=== PATIENT | female | born 1950 | race Caucasian/White ===

== ENCOUNTER → 2017-04-29 | Outpatient (CLI) | payer BC ==
[~2017-04-29] MED LIST: ACET-1256 PO; BND25X PO; CLTP PO; CORTISONE CREAM TD; DIAZ10TA PO; FERR324T PO; FRRG PO; GABA-113 PO; GLC500 PO; IMD/2 PO; LIDO/EPINEPHRINE/SOD BICARB 20 ML VIAL INFIL ONE; MCR5 PO; OXYC-292 PO; OXYC1TAB3 PO; PARO1TAB29 PO; SITA100T3 PO; XRL10 PO; XYLOCAINE 1%/SOD BICARB 20 ML VIAL INFIL ONE
[2017-04-29 12:33] LABS: ISTAT CREATININE 0.9 mg/dl (0.6-1.3); ISTAT HEMOGLOBIN 15.6 g/dl (12.0-16.0); ISTAT IONIZED CALCIUM 1.42 mmol/l (1.12-1.32)
--- NOTE | 2017-04-29 13:09 | Discharge Instructions ---
Discharge Instructions Procedure Procedure Date: Apr 29, 2017. Reason for visit: Hx Of Left Breast Ca-Images Here. Discharge Discharge Date: Apr 29, 2017. Discharge Diagnosis: post left breast MRI guided biopsy Instructions Activity Recommendations: Additional Limitations (see below) Return to School/Work: no limitations Recommended Home Diet: No Limitations Provider Instructions: ACTIVITY RECOMMENDATIONS: * No lifting, pushing, pulling or exercising the affected side for three days. RETURN TO SCHOOL/WORK: * You may return to work/school after the procedure, but do not perform any strenuous activities for 24 to 48 hours. MEDICATIONS: * Tylenol (two 325 mg) every four to six hours if needed for mild pain (if not allergic to Tylenol). DIET: * Resume previous diet. SPECIAL CARE INSTRUCTIONS: * Keep biopsy site dry for 24 hours. May shower after 24 hours, but do not soak (bathe) incision. * May remove Tegaderm (plastic patch) tomorrow AFTER showering. * Leave the steri-strips on for one week. Allow the steri-strips to fall off by themselves. If not off after one week, you may remove them. You may place a Bandaid crosswise over the strips, if desired. * Apply ice 10 minutes on and 10 minutes off as needed. * Wear a bra at bedtime to sleep more comfortably for 2-3 days. * Your referring physician should have the results after approximately 5 to 7 business days. * Call for unusual bleeding, fever, drainage, etc or if you have any questions call [phone] during normal business hours or after hours call Dr Long, . FOLLOW UP VISIT: Follow-up with Referring Physician as scheduled. Allergies Coded Allergies: Sulfa Drugs (Verified Allergy, Intermediate, RASH, 12/27/09) Adhesives (Verified Adverse Reaction, Intermediate, ITCHINESS,SKIN SORES, 12/27/09) Morphine (Verified Adverse Reaction, crying, hallucinations, 07/13/11) Raffaele Martinez Recommendations: Call your doctor if: * Temperature above 101 degrees * Pain not relieved by pain medicine ordered * There is increased drainage or redness from any incision * You have any unanswered questions or concerns. Your Doctors Instructions noted above were prepared by provider Sofia Long. Patient Signature Section: Patient Instructions Signature Page Ruth Laboy Patient (or Guardian) Signature/Date: I have read and understand the instructions given to me by my caregivers. Caregiver/RN/Doctor Signature/Date: The above-named patient and/or guardian has received patient instructions on this date. + Original Patient Signature Page (only) stays with chart. Please make copy for patient.
--- NOTE | 2017-04-29 15:52 | MAMMOGRAPHY REPORT ---
UNILATERAL LEFT DIGITAL DIAGNOSTIC MAMMOGRAM: 04/29/2017 CLINICAL HISTORY: Status post MRI guided biopsy of stippled non-mass enhancement in the 4:00 to 5:00 left breast. Patient has a history of left breast DCIS status post lumpectomy. Please refer to the report from left breast MRI guided biopsy performed at the same time for full det ail. IMPRESSION: POST PROCEDURE IMAGING FOR MARKER PLACEMENT Please refer to the report from left breast MRI guided biopsy performed at the same time for full det ail. Approximately 10% of breast cancers are not detected with mammography. A negative mammographic report should not delay biopsy if a clinically suggestive mass is present. Sofia Long M.D. ay/:04/29/2017 13:35:52 Application Support Intern: Dia FITCH)([place]), [facility] BI-RADS Code: Post Procedure Imaging For Marker Placement
--- NOTE | 2017-04-30 13:48 | MAMMOGRAPHY REPORT ---
THIS REPORT HAS BEEN AMENDED. MRI BIOPSY LEFT BREAST: 04/29/2017 CLINICAL HISTORY: Stippled non-mass enhancement throughout the lateral left breast, particularly 3:00 to 5:00 axes noted on recent breast MRI. Patient has a history of DCIS status post lumpectomy in No 2015. COMPARISON: Prior outside exams dated 08/22/2016, 08/15/2016, 08/09/2016, 11/21/2013, 08/25/2012. PATIENT CONSENT: After explaining the risks, benefits and alternatives of the procedure to the patien t, informed consent was obtained both verbally and in writing. Specific risks include: Bleeding, inf ection, puncture of adjacent structure, medication reaction, breast or lung injury, sampling error, n ontarget biopsy, pain and metal allergy. PROCEDURE DESCRIPTION: A timeout was performed prior to starting the procedure, and the left breast w as agreed as the site for biopsy. The patient was placed prone on a 1.5 Yojana MRI scanner. The lateral aspect of the left breast was c leansed with ChloraPrep. The left breast was positioned in a dedicated breast coil and MRI guidance grid device. After localizing sequences were obtained, pre-and postcontrast axial sequences were obtained, using 1 2 mL of Gadavist without immediate reaction. The postcontrast images confirm the persistence of james t stippled enhancement throughout the lateral left breast. Using these images, targeting was perform ed using [employer] software. The most prominent area of non-mass enhancement in the approximate 5:00 mid dle one third of the left breast was targeted. The skin was re-prepped with Betadine through the grid, and after local anesthesia was achieved, an i ntroducer sheath and localizing cnc milling machine operator were placed into the left breast via a lateral approach. Th e location of the cnc milling machine operator sheath was confirmed with additional axial images. After confirmation, 10 core biopsy samples were obtained using a 9-gauge Green A vacuum-assisted biopsy device. Post biopsy images demonstrate good sampling of the area, therefore, through the introducer sheath, a metallic biopsy marker was placed at the site. The patient tolerated the procedure well and there was no immediate complication. Hemostasis was ach ieved after several minutes of manual compression. The samples were sent to pathology in an appropri ately labeled container. Postprocedure mammography demonstrates a new dumbbell-shaped metallic biopsy marker in the approximat e 4:00 middle one third of the left breast. There is expected architectural distortion from prior angel mpectomy in the upper outer middle to posterior left breast. No significant post biopsy hematoma is seen. IMPRESSION: MRI BIOPSY Status post MRI guided biopsy of stippled non-mass enhancement in the lateral left breast, with biops y marker placed at the site. Pending benign pathology results, a follow-up breast MRI is recommended to ensure stability in adequa te sampling in 6 months. Also recommend continuation of screening mammography schedule status post treatment for left breast D CIS. The patient will receive notification of the pathology results from her referring physician. Sofia Long M.D. ay/:04/29/2017 16:45:57 Parks Recreation Director: seating captain, [facility] AMENDMENT: 05/05/2017 Sofia Long M.D. Pathology results from the MRI guided biopsy of non-mass enhancement in the approximate 4:00 to 5:00 left breast yielded fibrocystic change. Usual ductal hyperplasia. Adenosis. Scattered microcalcifi cations associated with benign breast tissue. The pathology results are concordant with the imaging appearance. A follow-up breast MRI is recommended in 6 months to ensure stability and adequate sampl ing after the biopsy. Also recommend continuation of close follow-up mammography after treatment for left breast cancer.
== END | disposition home or self-care (01) ==
LOC: C.MRI 09:34
PROVIDERS: ATTEND Surgery
DX: Z85.3 Personal history of malignant neoplasm of breast (principal); N60.92 Unspecified benign mammary dysplasia of left breast; R92.0 Mammographic microcalcification found on diagnostic imaging of breast